=== PATIENT | female | born 1990 | race Asian ===

== ENCOUNTER 2023-10-17 19:45 | Observation (INO) | payer MEDICAID, OTHER ==
[~2023-10-17] VITALS: Ht 154.9 cm; Wt 81.6 kg
[2023-10-17 20:38] VITALS: BP 113/61; PULSE 93; RESP 18; TEMP 98.3
[2023-10-18] MEDS ORDERED: PNV91TAB10 PO (10:11)
[2023-10-18] MEDS ORDERED: diphenhydrAMINE 50 MG/ML VIAL ONE (13:59)
== END 2023-10-17 21:35 | disposition home or self-care (01) ==
LOC: MLD 19:45 → INTOOBSV 19:45
PROVIDERS: ADMIT Obstetrics & Gynecology; ATTEND Obstetrics & Gynecology
DX: O46.93 Antepartum hemorrhage, unspecified, third trimester (principal); Z20.822 Contact with and (suspected) exposure to COVID-19; O42.92 Full-term premature rupture of membranes, unspecified as to length of time between rupture and onset of labor; Z3A.39 39 weeks gestation of pregnancy
CPT/HCPCS: 81000; 87426; G0378; J1200

== ENCOUNTER 2023-10-18 08:16 | Inpatient (IN) | payer OTHER ==
[~2023-10-18] VITALS: Ht 154.9 cm; Wt 81.6 kg
[2023-10-18] MEDS ORDERED: ceFAZolin Sod. 2,000 MG in DEXTROSE 5% 100 ML IV ONE (08:40)
[2023-10-18 09:01] LABS: BASOPHILS % (AUTO) 0.4 % (0.0-2.0); EOSINOPHILS # (AUTO) 0.1 K/uL (0-0.4); HEMATOCRIT 36.4 % (36-48); HEMOGLOBIN 12.9 g/dL (12.0-16.0); LYMPHOCYTES # (AUTO) 1.4 K/uL (2.5-16.5); LYMPHOCYTES % (AUTO) 18.9 % (20.5-51.1); MEAN CORPUSCULAR HEMOGLOBIN 35 pg (27-31); MEAN CORPUSCULAR HGB CONC 35 g/dL (33-37); MEAN CORPUSCULAR VOLUME 98.9 fL (80-94); MONOCYTES # (AUTO) 0.6 K/uL (0.8-1.0); MONOCYTES % (AUTO) 8.3 % (1.7-9.3); NEUTROPHILS # (AUTO) 5.4 K/uL (1.8-7.7); NEUTROPHILS % (AUTO) 71.4 % (42.2-75.2); PLATELET COUNT (AUTO) 181 K/uL (140-450); RED BLOOD CELL COUNT(AUTO) 3.68 MIL/uL (4.20-5.40); RED CELL DISTRIBUTION WIDTH 14.1 % (11.6-13.7); WHITE BLOOD COUNT (AUTO) 7.6 K/uL (4.8-10.8)
[2023-10-18] MEDS: LACTATED RINGERS 1,000 ML IV SCH ×2 (09:23→11:47)
[2023-10-18 09:33] LABS: APPEARANCE,URINE CLEAR (CLEAR); BILIRUBIN,URINE NEGATIVE (NEGATIVE); BLOOD, URINE NEGATIVE (NEGATIVE); COLOR,URINE YELLOW (YELLOW); LEUKOCYTE ESTERASE ,URINE TRACE (NEGATIVE); NITRITE, URINE NEGATIVE (NEGATIVE); PROTEIN,URINE NEGATIVE (NEGATIVE); UGLUCOSE NEGATIVE (NEGATIVE); UROBILINOGEN,URINE 0.2 EU/dL (0.2 - 1)
[2023-10-18 09:34] LABS: INR 0.9 (0.8-1.2); PARTIAL THROMBOPLASTIN TIME 28.6 secs (22-35.6); PROTHROMBIN TIME 9.4 secs (10.8-13.4)
[2023-10-18 09:35] LABS: ALBUMIN 2.6 g/dL (3.4-5.0); ANION GAP 15.5 (8-16); CALCIUM 8.5 mg/dL (8.5-10.1); CARBON DIOXIDE 19.3 mmol/L (21-32); CREATININE 0.5 mg/dL (0.6-1.3); POTASSIUM 3.8 mmol/L (3.5-5.1); TOTAL BILIRUBIN 0.3 mg/dL (0.0-1.0); TOTAL PROTEIN, SERUM 7.4 g/dL (6.4-8.2)
[2023-10-18 09:51] LABS: BACTERIA,URINE FEW /HPF (None Seen); RBC,URINE 0-5 /HPF (0-5); SQUAMOUS EPITHELIAL CELL,UR 0-3 (FEW) /LPF (0-3 (FEW)); WBC,URINE 0-5 /HPF (0-5)
[2023-10-18] MEDS ORDERED: ceFAZolin 2,000 MG VIAL ONE (09:59)
[2023-10-18] MEDS ORDERED: PNV91TAB10 PO (10:11)
[2023-10-18] MEDS ORDERED: fentaNYL citrate 0.05 MG/ML VIAL ONE (12:05)
[2023-10-18] MEDS ORDERED: MORPHINE PRES FREE 10 MG/10 ML AMP IV ONE (12:06)
[2023-10-18] MEDS ORDERED: BUPIVACAINE MPF 0.25% 10 ML VIAL INJ ONE (12:32)
[2023-10-18] MEDS ORDERED: ePHEDrine 50 MG/ML VIAL IV ONE (12:32)
[2023-10-18] MEDS ORDERED: METOCLOPRAMIDE 10 MG/2 ML INJ VIAL IVP ONE (12:32)
[2023-10-18] MEDS ORDERED: TEMAZEPAM 15 MG CAP PO PRN (12:50)
[2023-10-18] MEDS ORDERED: KETOROLAC 30 MG/ML VIAL IVP PRN (12:50)
[2023-10-18] MEDS ORDERED: METHYLERGONOVINE 0.2 MG/ML AMP IM PRN (12:50)
[2023-10-18] MEDS ORDERED: IBUPROFEN 800 MG TAB PO PRN (12:50)
[2023-10-18] MEDS ORDERED: OXYTOCIN 20 UNITS/LR PREMIX 1,000 ML IV ONE ×2 (13:07→21:11)
[2023-10-18] MEDS ORDERED: NALOXONE 0.4 MG/ML VIAL IVP PRN ×3 (13:30)
[2023-10-18] MEDS ORDERED: NALBUPHINE 10 MG/ML AMP IVP PRN (13:30)
[2023-10-18] MEDS ORDERED: ONDANSETRON 4 MG/2 ML VIAL IVP PRN (13:30)
[2023-10-18] MEDS: diphenhydrAMINE 50 MG/ML VIAL IVP PRN ×2 (14:01→18:04)
[2023-10-18] MEDS: OXYTOCIN 20 UNITS in LACTATED RINGERS 1,000 ML IV SCH ×2 (14:02→22:12)
[2023-10-18] MEDS: KETOROLAC 30 MG/ML VIAL IM/IVP SCH (17:58)
[2023-10-18] MEDS ORDERED: diphenhydrAMINE 50 MG/ML VIAL IVP ONE (20:20)
[2023-10-18] MEDS: DOCUSATE SOD/SENNA 50/8.6 MG 1 TAB PO SCH (21:00)
[2023-10-19] MEDS: diphenhydrAMINE 50 MG/ML VIAL IVP PRN ×2 (00:39→05:00)
[2023-10-19] MEDS: KETOROLAC 30 MG/ML VIAL IM/IVP SCH ×2 (00:42→06:26)
[2023-10-19] MEDS ORDERED: OXYTOCIN 20 UNITS/LR PREMIX 1,000 ML IV ONE (05:31)
[2023-10-19] MEDS: OXYTOCIN 20 UNITS in LACTATED RINGERS 1,000 ML IV SCH (06:23)
[2023-10-19 06:26] LABS: BASOPHILS % (AUTO) 0.1 % (0.0-2.0); EOSINOPHILS % (AUTO) 0.2 % (0.0-4.0); HEMATOCRIT 31.7 % (36-48); HEMOGLOBIN 11.3 g/dL (12.0-16.0); LYMPHOCYTES # (AUTO) 0.9 K/uL (2.5-16.5); LYMPHOCYTES % (AUTO) 7.3 % (20.5-51.1); MEAN CORPUSCULAR HEMOGLOBIN 36 pg (27-31); MEAN CORPUSCULAR HGB CONC 36 g/dL (33-37); MEAN CORPUSCULAR VOLUME 99.9 fL (80-94); MONOCYTES # (AUTO) 0.9 K/uL (0.8-1.0); MONOCYTES % (AUTO) 6.9 % (1.7-9.3); NEUTROPHILS # (AUTO) 10.9 K/uL (1.8-7.7); NEUTROPHILS % (AUTO) 85.5 % (42.2-75.2); PLATELET COUNT (AUTO) 141 K/uL (140-450); RED BLOOD CELL COUNT(AUTO) 3.18 MIL/uL (4.20-5.40); WHITE BLOOD COUNT (AUTO) 12.7 K/uL (4.8-10.8)
[2023-10-19] MEDS: oxyCODONE/APAP 5/325 MG 1 TAB TAB PO PRN ×4 (10:09→22:20)
[2023-10-19] MEDS: SIMETHICONE 80 MG TAB.CHEW PO PRN ×2 (10:10→22:23)
[2023-10-19] MEDS: IBUPROFEN 800 MG TAB PO PRN (12:52)
[2023-10-19] MEDS: DOCUSATE SOD/SENNA 50/8.6 MG 1 TAB PO SCH (21:01)
[2023-10-20] MEDS: IBUPROFEN 800 MG TAB PO PRN ×3 (00:21→19:51)
[2023-10-20] MEDS ORDERED: CAMERA MC ONE (03:47)
[2023-10-20] MEDS ORDERED: FLU VACCINE QS2023-24 0.5 ML SYR IMVAC ONE (04:30)
[2023-10-20] MEDS: SIMETHICONE 80 MG TAB.CHEW PO PRN ×3 (04:35→21:08)
[2023-10-20] MEDS: oxyCODONE/APAP 5/325 MG 1 TAB TAB PO PRN ×2 (08:58→15:42)
[2023-10-20] MEDS: DOCUSATE SOD/SENNA 50/8.6 MG 1 TAB PO SCH (21:05)
[2023-10-21] MEDS ORDERED: CAMERA MC ONE (04:11)
[2023-10-21] MEDS: oxyCODONE/APAP 5/325 MG 1 TAB TAB PO PRN ×2 (04:31→08:43)
[2023-10-21] MEDS ORDERED: SODIUM PHOSPHATE 118 ML ENEM RC SCH (08:10)
[2023-10-21] MEDS: SIMETHICONE 80 MG TAB.CHEW PO PRN (10:09)
[2023-10-21] MEDS: IBUPROFEN 800 MG TAB PO PRN (10:09)
== END 2023-10-21 11:20 | disposition home or self-care (01) | DRG 539 ==
LOC: MLD 08:16 → MFCC 13:40
PROVIDERS: ADMIT Obstetrics & Gynecology; ATTEND Obstetrics & Gynecology
PROC: 0UB70ZZ Excision of Bilateral Fallopian Tubes, Open Approach (ICD-10-PCS; 2023-10-18)
PROC: 10907ZC Drainage of Amniotic Fluid, Therapeutic from Products of Conception, Via Natural or Artificial Opening (ICD-10-PCS; 2023-10-18)
PROC: 10D00Z1 Extraction of Products of Conception, Low, Open Approach (ICD-10-PCS; principal; 2023-10-18 12:30)
DX: O34.211 Maternal care for low transverse scar from previous cesarean delivery (principal); R71.0 Precipitous drop in hematocrit; O69.81X0 Labor and delivery complicated by cord around neck, without compression, not applicable or unspecified; Z37.0 Single live birth; Z3A.39 39 weeks gestation of pregnancy
CPT/HCPCS: 36415; 80053; 81001; 85025; 85610; 85730; 86592; 86886; 86900; 86901; 87081; 88302; J1200; J1885; J2270; J2590; J2765; J3010; J3490; J7120; Q0163